=== PATIENT | female | born 1995 | race Caucasian/White ===

== ENCOUNTER 2017-08-30 00:06 | Emergency (ER) | payer OTHER, MEDICAID ==
[~2017-08-30 00:06] MED LIST: DICL-195 PO; MEDR150D IM
--- NOTE | 2017-08-30 00:22 | ER Report ---
History and Physical Time Seen By MD: 00:13 Hx. of Stated Complaint: PT DIAGNOSED WITH STREP THROAT 15 DAYS AGO. FINISHED ABX AND IS STILL HAVING SYMPTOMS OF SORE THROAT. HPI/ROS CHIEF COMPLAINT: sore throat HISTORY OF PRESENT ILLNESS: This is a 22 year old female. She has been recently treated for Strep and finished her amoxicillin course. She felt like the sore throat was better, now is rebounding and more pain. Having trouble swallowing because of this. Worried that the Strep is back or not treated fully. She has mild cough. No runny nose. No abdominal pain, nausea or vomiting. Allergies: Coded Allergies: No Known Drug Allergies (Unverified , 08/30/17) Home Meds Reported Medications Medroxyprogesterone Acet 150 Mg (DEPO-PROVERA 150 MG) 150 Mg/1 Ml Disp.syrin, 150 MG IM DIRECTED 04/24/16 Discontinued Scripts Diclofenac Sodium (DICLOFENAC SODIUM) 75 Mg Tablet.dr, 75 MG PO BID, #20 TAB Prov:DEVANTE CERVANTES 04/24/16 Reviewed Nurses Notes: Yes Hx Substance Use Disorder: No Constitutional Vital Sign - Last 24 Hours 08/30/17 08/30/17 08/30/17 08/30/17 00:13 00:15 01:00 01:15 Temp 97.9 Pulse 117 113 112 99 Resp 14 B/P (MAP) 117/72 Pulse Ox 98 98 95 96 O2 Delivery Room Air 08/30/17 08/30/17 08/30/17 01:30 01:54 02:23 Pulse 110 101 104 Resp 14 B/P (MAP) 120/78 (92) 105/62 (76) Pulse Ox 97 98 94 O2 Delivery Room Air Room Air Physical Exam General Appearance: The patient is alert. No acute distress. Eyes: Pupils are equal, round. No pallor, injection or icterus. ENT: Mucous membranes are moist. Normal oral mucosa. Posterior oropharynx has erythema, but no exudates noted, and some tonsillar hypertrophy. Neck: Tender submandibular and anterior cervical lymphadenopathy. Respiratory: Breathing easily and unlabored. Lungs are clear to auscultation. Cardiovascular: Regular rate and rhythm. No murmurs, gallops or rubs. Gastrointestinal: Abdomen is soft and non tender. Nondistended. No splenomegaly noted. Normal active bowel sounds. Neurological: Alert and oriented x3. No focal neurologic deficits Skin: Warm and dry. No rashes. DIFFERENTIAL DIAGNOSIS: After history and physical exam, differential diagnosis was considered for sore throat, concern for incomplete treatment of strep, viral , mono, or abscess. Medical Decision Making Data Points Result Diagram: 08/30/17 0113 Laboratory Hematology Test 08/30/17 00:12 08/30/17 01:13 Monoscreen Negative (NEGATIVE) Group A Streptococcus Screen Negative (NEGATIVE) Red Blood Count 5.09 M/uL (4.17-5.56) Mean Corpuscular Volume 86.9 fL (80.0-96.0) Mean Corpuscular Hemoglobin 30.3 pg (26.0-33.0) Mean Corpuscular Hemoglobin Concent 34.9 g/dL (32.0-36.0) Red Cell Distribution Width 12.9 % (11.5-14.5) Mean Platelet Volume 8.0 fL (7.2-11.1) Neutrophils (%) (Auto) 76.1 % (39.4-72.5) Lymphocytes (%) (Auto) 14.5 % (17.6-49.6) Monocytes (%) (Auto) 8.0 % (4.1-12.4) Eosinophils (%) (Auto) 0.6 % (0.4-6.7) Basophils (%) (Auto) 0.8 % (0.3-1.4) Nucleated RBC Relative Count (auto) 0.0 /100WBC Neutrophils # (Auto) 10.3 K/uL (2.0-7.4) Lymphocytes # (Auto) 2.0 K/uL (1.3-3.6) Monocytes # (Auto) 1.1 K/uL (0.3-1.0) Eosinophils # (Auto) 0.1 K/uL (0.0-0.5) Basophils # (Auto) 0.1 K/uL (0.0-0.1) Nucleated RBC Absolute Count (auto) 0.00 K/uL C-Reactive Protein 1.3 mg/dl (<1.0) Human Chorionic Gonadotropin, Qual Negative (NEGATIVE) Chemistry Test 08/30/17 00:12 08/30/17 01:13 Monoscreen Negative (NEGATIVE) Group A Streptococcus Screen Negative (NEGATIVE) White Blood Count 13.5 k/uL (4.5-11.0) Red Blood Count 5.09 M/uL (4.17-5.56) Hemoglobin 15.4 g/dL (12.0-16.0) Hematocrit 44.3 % (34.0-47.0) Mean Corpuscular Volume 86.9 fL (80.0-96.0) Mean Corpuscular Hemoglobin 30.3 pg (26.0-33.0) Mean Corpuscular Hemoglobin Concent 34.9 g/dL (32.0-36.0) Red Cell Distribution Width 12.9 % (11.5-14.5) Platelet Count 236 K/uL (150-450) Mean Platelet Volume 8.0 fL (7.2-11.1) Neutrophils (%) (Auto) 76.1 % (39.4-72.5) Lymphocytes (%) (Auto) 14.5 % (17.6-49.6) Monocytes (%) (Auto) 8.0 % (4.1-12.4) Eosinophils (%) (Auto) 0.6 % (0.4-6.7) Basophils (%) (Auto) 0.8 % (0.3-1.4) Nucleated RBC Relative Count (auto) 0.0 /100WBC Neutrophils # (Auto) 10.3 K/uL (2.0-7.4) Lymphocytes # (Auto) 2.0 K/uL (1.3-3.6) Monocytes # (Auto) 1.1 K/uL (0.3-1.0) Eosinophils # (Auto) 0.1 K/uL (0.0-0.5) Basophils # (Auto) 0.1 K/uL (0.0-0.1) Nucleated RBC Absolute Count (auto) 0.00 K/uL C-Reactive Protein 1.3 mg/dl (<1.0) Human Chorionic Gonadotropin, Qual Negative (NEGATIVE) EKG/Imaging Imaging EXAMINATION: CT Soft Tissue Neck W/Contrast HISTORY: Sore throat TECHNIQUE: Spiral scan was obtained from the hard palate through the upper chest during injection of nonionic iodinated intravenous contrast. One of the following dose optimization techniques was utilized in the performance of this exam: Automated exposure control; adjustment of the mA and/ or kV according to the patient's size; or use of an iterative reconstruction technique. Specific details can be referenced in the facility's radiology CT exam operational policy. Contrast: 75 mL of IV Isovue-370. COMPARISON STUDIES: None. FINDINGS: Suprahyoid neck: The palatine tonsils are prominent bilaterally but there is no evidence for a tonsillar abscess. Infrahyoid neck: There are several small low-density nodules in the thyroid gland was some slight asymmetry in the right lobe. Airway: Negative Musculoskeletal / Body wall: Negative Lymph node assessment: Prominent cervical lymph nodes are noted bilaterally likely reactive. Courier left level 2 lymph node image 136 measures 2.4 x 0.8 cm. Courier right level 2 lymph node image 128 measures 1.7 x 1 cm. Visualized orbits / brain / paranasal sinuses: Negative Upper chest: Negative IMPRESSION: 1. Large palatine tonsils but no evidence for tonsillar abscess. 2. Prominent bilateral cervical lymph nodes likely reactive in this age group. Recommend clinical follow-up. 3. Several small low-density nodules in the thyroid gland. Asymmetric enlargement of the right lobe of thyroid gland is also noted. Please correlate with thyroid function tests. Report Dictated By: Nicholas Cardona MD at 08/30/2017 1:58 AM ED Course/Re-evaluation Clinical Indication for ER IV: IV Access ED Course Strep and [place] are negative. CT scan negative. This appears to be viral. Discussed this with the patient. Conservative treatment at this time. Recommended follow-up for the thyroid nodules noted on CT. Decision to Disposition Date: Aug 30, 2017 Decision to Disposition Time: 02:15 Depart Departure Latest Vital Signs Vital Signs Date Time Temp Pulse Resp B/P (MAP) Pulse Ox O2 Delivery O2 Flow Rate FiO2 08/30/17 02:23 104 105/62 (76) 94 Room Air 08/30/17 01:54 14 08/30/17 00:13 97.9 Impression: Primary Impression: Pharyngitis Condition: Improved Disposition: HOME OR SELF-CARE Patient Instructions: Pharyngitis (ED) Additional Instructions: Strep and mono tests were negative. This means that your sore throat is from a virus. Your CT scan did not show any signs of abscess associated with the tonsils. Take Ibuprofen as needed for throat pain. You can also get some over the counter medications to help with throat pain. The CT scan did show some nodules in the thyroid gland. You will need to see a primary care provider for testing for the thyroid to follow-up on these changes. Problem Qualifiers Primary Impression: Pharyngitis Pharyngitis/tonsillitis etiology: unspecified etiology Qualified Codes: J02.9 - Acute pharyngitis, unspecified AUDREY BROWN MD Aug 30, 2017 00:22
[2017-08-30] MEDS ORDERED: IOPAMIDOL 76% 75 ML INFUS BTL 75 ML ONE (00:32)
[2017-08-30 01:21] LABS: PLATELET COUNT, AUTOMATED 236 K/uL (150-450)
--- NOTE | 2017-08-30 02:11 | RADIOLOGY IMAGING REPORT ---
FACILITY: [facility] PATIENT NAME: Sharron Avina : 1995 MR: [id number] V: [id number] EXAM DATE: ORDERING PHYSICIAN: AUDREY BROWN TECHNOLOGIST: Location: [facility] - [place] Patient: Sharron Avina : 1995 Visit/Account:[id number] Date of Sevice: 08/30/2017 EXAMINATION: CT Soft Tissue Neck W/Contrast HISTORY: Sore throat TECHNIQUE: Spiral scan was obtained from the hard palate through the upper chest during injection of nonionic iodinated intravenous contrast. One of the following dose optimization techniques was utilized in the performance of this exam: Autom ated exposure control; adjustment of the mA and/or kV according to the patient's size; or use of an i terative reconstruction technique. Specific details can be referenced in the facility's radiology C T exam operational policy. Contrast: 75 mL of IV Isovue-370. COMPARISON STUDIES: None. FINDINGS: Suprahyoid neck: The palatine tonsils are prominent bilaterally but there is no evidence for a tonsi llar abscess. Infrahyoid neck: There are several small low-density nodules in the thyroid gland was some slight asy mmetry in the right lobe. Airway: Negative Musculoskeletal / Body wall: Negative Lymph node assessment: Prominent cervical lymph nodes are noted bilaterally likely reactive. Represe ntative left level 2 lymph node image 136 measures 2.4 x 0.8 cm. Rn Lactation Consultant right level 2 lymph n ode image 128 measures 1.7 x 1 cm. Visualized orbits / brain / paranasal sinuses: Negative Upper chest: Negative IMPRESSION: 1. Large palatine tonsils but no evidence for tonsillar abscess. 2. Prominent bilateral cervical lymph nodes likely reactive in this age group. Recommend clinical fol low-up. 3. Several small low-density nodules in the thyroid gland. Asymmetric enlargement of the right lobe o f thyroid gland is also noted. Please correlate with thyroid function tests. Report Dictated By: Nicholas Cardona MD at 08/30/2017 1:58 AM Report E-Signed By: Nicholas Cardona MD at 08/30/2017 2:06 AM WSN:[id number]
[2017-08-30 02:23] VITALS: BP 105/62
== END 2017-08-30 02:33 | disposition home or self-care (01) ==
LOC: ER 00:37
DX: J02.9 Acute pharyngitis, unspecified (principal)
CPT/HCPCS: 70491; 84703; 85025; 86140; 86308; 87081; 87880; 99284; Q9967